=== PATIENT | female | born 1960 | race Caucasian/White ===

== ENCOUNTER → 2017-03-13 | Outpatient (CLI) | payer MEDICAID | END | disposition home or self-care (01) | LOC: RAD 05:10 | PROVIDERS: ATTEND Nurse Practitioner Family | DX: S83.272A Complex tear of lateral meniscus, current injury, left knee, initial encounter (principal); M06.862 Other specified rheumatoid arthritis, left knee; X58.XXXA Exposure to other specified factors, initial encounter; Y93.89 Activity, other specified; Y92.89 Other specified places as the place of occurrence of the external cause; Y99.8 Other external cause status ==